=== PATIENT | female | born 1975 ===

== ENCOUNTER → 2022-06-26 08:18 | Outpatient (BNVA) | payer BC, SELFPAY | PROVIDERS: PCP Internal Medicine; Visit Provider Student in an Organized Health Care Education/Training Program | DX: Z13.89 Encounter for screening for other disorder (principal) ==

== ENCOUNTER → 2022-10-01 14:56 | Outpatient (BNVA) | payer BC, SELFPAY | PROVIDERS: PCP Internal Medicine; Visit Provider Nurse Practitioner Family | DX: Z13.89 Encounter for screening for other disorder (principal) ==

== ENCOUNTER → 2022-12-11 13:04 | Outpatient (BNVA) | payer BC, SELFPAY | PROVIDERS: PCP Internal Medicine; Visit Provider Nurse Practitioner Family ==

== ENCOUNTER 2024-03-10 13:58 | Outpatient (AMB) | payer BC, SELFPAY ==
--- NOTE | 2024-03-10 14:09 | A.OFFVIS_ITS ---
Vital Signs 03/10/24 14:12 Height 5 ft 4 in Weight 156 lb BMI 26.8 BP 120/78 Blood Pressure Location Rt brachial Position Sitting Intake Visit Reasons: 3 mo f/u for Migraines Intake Note: Patient presents for 3 month follow up migraines. patient's migraines are much better nurtec seems to be working Allergies No Known Allergies Allergy (Verified 03/10/24 14:13) Medication List - Last Reconciled 03/10/24 by MULU Spence [id number] 250-250-65 mg (Excedrin Migraine) 1 tab PO Q4-6H PRN ibuprofen 800 mg PO Q8H PRN levothyroxine 50 mcg PO DAILY propranolol 10 mg PO BID 30 days riboflavin (vitamin B2) 400 mg PO DAILY 30 days rimegepant (Nurtec ODT) 75 mg orally daily PRN; 30 days triamcinolone acetonide 0.1% 1 appl topical DAILY PRN HPI Comments Details: 48-yr-old female presents for f/u visit. Pt reports she is having less frequent migraines as she is not have her menstrual cycle as regularly. Nurtec is effective for migarine tx. Headache characteristics: Prodrome symptoms: Sleepiness Aura: None Headache: Severe palpitation to pounding frontal, but also can be in top of head, or in the back of the head. Associated symptoms: Photophobia, phonophobia, osmophobia, dizziness (did not have this before 3 months ago), brain fog, word recall, tiredness, facial redness/warmth but hands/feet are cold. Postdrome: tiredness and residual head pain She had seen rheumatology last year for loss of eyebrows, however they did not feel this was an auto-immune process and suggested pt see dermatology. She is having right shoulder pain, which prevents her from sleeping well. She did PT for this but it did not help. She has been trying to do the home PT exercises, including light weights, but not if she is in pain. 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 Recent MRI showed right shoulder tear. She has been referred to Dr Collier at [facility] ortho. She is also having RLE pain- right hip, knee, and ankle pain which is different then the shoulder pain. The right hip and knee pain is more aching- similar but more intense than her fibromyalgia pain. Movement is helpful. She can have BLE leg cramps. She is taking Magnesium qhs. Has constant low back, non-radiating pain. Has BLE R > L swelling. Denies LE numbness, tingling, lumbar shooting pain, discoloration. She uses Ibuprofen prn. Her PCP just prescribed her Meloxicam- she tried it once but did not sleep better. 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 Physical Exam Vital Signs: Last Vital Signs BP 120/78 03/10/24 14:12 BMI result Body Mass Index 26.8 Const General: cooperative and no acute distress Orientation/consciousness: patient oriented x3 Resp Effort & Inspection: normal respiratory effort and able to speak in complete sentences Neuro General: patient oriented x3 Cranial nerves: Yes CN's II-XII intact bilaterally Cognition (Neuro): normal cognition Gait exam (Neuro): Normal gait present Motor exam (neuro): 5/5 motor strength present throughout Deep tendon reflexes (DTR's): Right patellar reflex intensity grade: 2+, Left patellar reflex intensity grade: 2+, Right ankle reflex intensity grade: 2+ and Left ankle reflex intensity grade: 2+ Psych Appearance: grossly normal Mental Status: mental status grossly normal Speech and movement: Normal speech and movement present Affect: normal affect Attitude: cooperative Assessment & Plan Assessment & Plan (1) Migraines: Code(s): G43.909 - Migraine, unspecified, not intractable, without status migrainosus Category: Medical Qualifiers: Migraine type: menstrual (2) Pain of right lower extremity: Code(s): M79.604 - Pain in right leg Category: Medical Plan For overall headache management: Continue optimizing good self-care, including but not limited to maintaining a healthy diet, adequate fluid intake, adequate sleep, and engaging in regular physical activity. Monitor dizziness. For acute headache treatment: Continue Rimegepant ODT 75mg qd prn, may adjunct w/ OTC Tylenol.. Previous acute migraine medication trials: Excedrin- helps but makes jittery. Sumatriptan- helped the pain but made her dizzy (so has to stay home). Naratriptan- chest discomfort and SOB. Acute migraine medication contraindications: None at this time. For headache prevention medication: Continue Riboflavin 400mg qam Continue Mag gluconate or citrate 200-400mg qhs Try taking Propranolol 10mg bid- also uses for anxiety. Previous migraine prevention medication trials: None. Migraine prevention medication contraindications: None at this time. For RLE pain: Trial Meloxicam qd as ordered by PCP- may take several days to see full effect. Hold Ibuprofen when taking. May use Tyelnol 650-1000mg q 4-6 hrs prn. Check RLE EMG/NCS. Pt has previously had comprehensive lab work-up in the past- will review need for additional testing upon review of EMG results. Ortho consult for right shoulder pain. Will follow-up upon review of above and patient to follow-up in clinic in 6 months or sooner prn. Orders: Orders NE nerve conduction velocity Today G43.909 - Migraine, unspecified, not intractable, without status migrainosus, M79.604 - Pain in right leg NE electromyogram (EMG) Today G43.909 - Migraine, unspecified, not intractable, without status migrainosus, M79.604 - Pain in right leg Coding Level of Care Code Est Pt Level 4 (39380) Diagnoses Migraines G43.909 Migraine type: menstrual Pain of right lower extremity M79.604
[2024-03-10 14:12] VITALS: BP 120/78; BMI 26.8
== END 2024-03-10 14:56 | disposition home or self-care (01) ==
PROVIDERS: PCP Internal Medicine; Visit Provider Nurse Practitioner Family
DX: G43.909 Migraine, unspecified, not intractable, without status migrainosus (principal); M79.604 Pain in right leg
CPT/HCPCS: 99214

== ENCOUNTER → 2024-03-10 13:58 | Outpatient (BNVA) | payer BC, SELFPAY | PROVIDERS: PCP Internal Medicine; Visit Provider Nurse Practitioner Family ==

== ENCOUNTER 2024-04-13 15:34 | Outpatient (REF) | payer BC, SELFPAY ==
--- NOTE | 2024-04-13 15:45 | EMG_ITS ---
Chief complaint: Chronic lower back pain, nonradicular. In the last year, started having on and off pain on right hip/knee/ankle, especially when waking up in the morning. Denies any numbness. Reason for referral: Evaluate for lumbar radiculopathy versus neuropathy Referred by: Mercedes Ball NP Procedure done: Right lower extremity NCS/EMG Precautions and/or limitations: None The limb temperature was monitored continuously and remained between 32-36 degrees C during the performance of the NCS. Nerve Conduction Studies Anti Sensory Summary Table ?Stim Site NR Onset (ms) Norm Onset (ms) Peak (ms) Norm Peak (ms) O-P Amp (?V) Norm O-P Amp Site1 Site2 Delta-0 (ms) Dist (cm) Lavelle (m/s) Norm Lavelle (m/s) Right Sural Anti Sensory (Lat Mall) Calf ? 2.6 3.1 <4.0 13.3 >5.0 Calf Lat Mall 2.6 14.0 54 Motor Summary Table ?Stim Site NR Onset (ms) Norm Onset (ms) O-P Amp (mV) Norm O-P Amp iAmp (mV) Amp (1st) (%) Site1 Site2 Delta-0 (ms) Dist (cm) Lavelle (m/s) Norm Lavelle (m/s) Right Peroneal Motor (Ext Dig Brev) Ankle ? 3.1 <4.0 8.3 >2.5 9.8 100.0 Ankle Ext Dig Brev 3.1 0.0 B Fib ? 9.0 8.0 9.5 96.4 B Fib Ankle 5.9 31.5 53 >40 Poplt ? 9.6 7.6 9.1 91.6 Poplt B Fib 0.6 4.0 67 >40 Right Tibial Motor (Abd Fuentes Brev) Ankle ? 3.1 <5 12.8 >2.5 19.2 100.0 Ankle Abd Fuentes Brev 3.1 0.0 Knee ? 10.5 10.3 16.5 80.5 Knee Ankle 7.4 41.0 55 >40 EMG ?Side Muscle Nerve Root Ins Act Fibs Psw Amp Dur Poly Recrt Int Pat Comment Right AbdHallucis MedPlantar S1-2 Incr 1+ 1+ Nml Nml 0 Nml Complete Right AntTibialis Dp Br Peron L4-5 Nml Nml Nml Nml Nml 0 Nml Complete Right PostTibialis Tibial L5, S1 Nml Nml Nml Nml Nml 0 Nml Complete Right MedGastroc Tibial S1-2 Nml Nml Nml Nml Nml 0 Nml Complete Right VastusMed Femoral L2-4 Nml Nml Nml Nml Nml 0 Nml Complete Paraspinal EMG ?Side Muscle Nerve Root Ins Act Fibs Psw Comment Right Lumbar Upper Rami Nml Nml Nml Right Lumbar Mid Rami Nml Nml Nml Right Lumbar Lower Rami Nml Nml Nml FINDINGS: All motor and sensory nerves tested showed normal latencies, amplitudes and conduction velocities. Concentric needle EMG was performed in selected muscles of the right lower extremity and lumbar paraspinals. Study revealed signs of electric abnormalities as shown in the table above. Right AH showed increased insertional activity, PSWs and fibrillations. No denervation seen on lumbar paraspinals. IMPRESSION: 1. There is no electrodiagnostic evidence for peroneal neuropathy, tibial neuropathy. lumbosacral plexopathy, or peripheral neuropathy. 2. Cannot completely rule out a right S1 radiculopathy. CLINICAL COMMENT: Further clinical correlation recommended. Thank you for your kind referral. Sanjuana Hollins MD, HEIDE Board Certified, [place] Board of Physical Medicine and Rehabilitation (ABPMR) Board Certified, [place] Board of Electrodiagnostic Medicine (ABEM) CODIN [id number] [facility]
== END 2024-04-13 15:35 | disposition home or self-care (01) ==
LOC: HO.NEURO 15:34
PROVIDERS: PCP Internal Medicine; Visit Provider Nurse Practitioner Family
DX: M79.604 Pain in right leg (principal); G43.909 Migraine, unspecified, not intractable, without status migrainosus
CPT/HCPCS: 95886; 95908

== ENCOUNTER → 2024-04-13 15:45 | Outpatient (BNV) | payer BC, SELFPAY | PROVIDERS: PCP Internal Medicine; Visit Provider Physical Medicine & Rehabilitation | DX: M79.604 Pain in right leg (principal); M54.59 Other low back pain | CPT/HCPCS: 95886; 95908 ==

== ENCOUNTER 2024-09-20 15:48 | Outpatient (AMB) | payer BC, SELFPAY ==
--- NOTE | 2024-09-20 15:27 | A.OFFVIS_ITS ---
Intake Visit Reasons: Follow Up Pediatric Assistant Required: No Accompanied by: Self / Same As Patient Allergies No Known Allergies Allergy (Verified 09/20/24 15:28) Medication List - Last Reconciled 09/20/24 by MULU Spence [id number] 250-250-65 mg (Excedrin Migraine) 1 tab PO Q4-6H PRN ibuprofen 800 mg PO Q8H PRN levothyroxine 50 mcg PO DAILY propranolol 10 mg PO BID 30 days riboflavin (vitamin B2) 400 mg PO DAILY 30 days rimegepant (Nurtec ODT) 75 mg orally daily PRN; 30 days triamcinolone acetonide 0.1% 1 appl topical DAILY PRN HPI Comments Details: 49-yr-old female presents for f/u televeideo visit of migraine and RLE pain. She states she has not having as many migraine attacks, now only when she has her menstrual cycle, which is occurring irregularly- last was 3 months ago. However when she has the migraine, it is very severe and she cannot work. She stopped her riboflavin about 3 months ago-wonders if she should resume it. She states she says something on social media, stating that magnesium glistening may increase risk for cancer- discussed that there is no clear evidence for this. In fact, low magnesium levels have been associated with higher cancer risk. Though did discuss that in the [place] health supplements are not regulated by the FDA and thus we can not know for sure exactly what is in them. She can try to use more reputable supplement manufacturers. RLE EMG/NCS: Cannot completely rule out a right S1 radiculopathy. Her lwoer back pain is always bothersome, especially if she is standing up for even an hour. she will need to stretch and do pilates type exercises at home- helps some.. The RLE pain, comes and goes, now more in the knees and ankles. States in the morning sometimes, she is just limping, until her body adjusts to the day. She wonders if this is her fibromyalgia. She has done PT in the past for her upper body but never for her low back or right lower leg. She is curious about trying acupuncture, she previously did this for other symptoms in the past which was helpful. 03/10/24, previous HPI: Pt reports she is having less frequent migraines as she is not have her menstrual cycle as regularly. Nurtec is effective for elbert tx. Headache characteristics: Prodrome symptoms: Sleepiness Aura: None Headache: Severe palpitation to pounding frontal, but also can be in top of head , or in the back of the head. Associated symptoms: Photophobia, phonophobia, osmophobia, dizziness (did not have this before 3 months ago), brain fog, word recall, tiredness, facial redness/warmth but hands/feet are cold. Postdrome: tiredness and residual head pain She had seen rheumatology last year for loss of eyebrows, however they did not feel this was an auto-immune process and suggested pt see dermatology. She is having right shoulder pain, which prevents her from sleeping well. She did PT for this but it did not help. She has been trying to do the home PT exercises, including light weights, but not if she is in pain. 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 Recent MRI showed right shoulder tear. She has been referred to Dr Collier at [facility] ortho. She is also having RLE pain- right hip, knee, and ankle pain which is different then the shoulder pain. The right hip and knee pain is more aching- similar but more intense than her fibromyalgia pain. Movement is helpful. She can have BLE leg cramps. She is taking Magnesium qhs. Has constant low back, non-radiating pain. Has BLE R > L swelling. Denies LE numbness, tingling, lumbar shooting pain, discoloration. She uses Ibuprofen prn. Her PCP just prescribed her Meloxicam- she tried it once but did not sleep better. 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 Physical Exam Const General: cooperative and no acute distress Orientation/consciousness: patient oriented x3 Resp Effort & Inspection: normal respiratory effort and able to speak in complete se ntences Neuro General: patient oriented x3 Cognition (Neuro): normal cognition Psych Appearance: grossly normal Mental Status: mental status grossly normal Speech and movement: Normal speech and movement present Affect: normal affect Attitude: cooperative Telehealth Telehealth Telehealth Platform: [employer] Location of provider rendering services: practice address Location of patient: address on file Patient Identification confirmed using: Name, : Yes Telehealth method: video Patient verbally consented to treatment: Yes Patient verbally consented to billing insurance company: Yes Patient informed of any privacy concerns related to visit: Yes Minutes spent on Phone/Video with Pt.: 24 Assessment & Plan Assessment & Plan (1) Low back pain, unspecified: Code(s): M54.50 - Low back pain, unspecified Category: Medical (2) Pain of right lower extremity: Code(s): M79.604 - Pain in right leg Category: Medical (3) Migraines: Code(s): G43.909 - Migraine, unspecified, not intractable, without status migrainosus Category: Medical Qualifiers: Intractability: not intractable Migraine type: menstrual Status migrainosus presence: without status migrainosus Qualified Code(s): G43.829 - Menstrual migraine, not intractable, without status migrainosus Plan For overall headache management: Continue optimizing good self-care, including but not limited to maintaining a healthy diet, adequate fluid intake, adequate sleep, and engaging in regular physical activity. Monitor dizziness. For menstrual migraine: Advised to try taking Nurtec at the very 1st sign of the menstrual migraine attack, and again may adjunct with Tylenol, ibuprofen, or Excedrin. May try taking edemame 1 cup daily starting at onset of menstrual migraine and continuing x's 1 week. For acute headache treatment: Continue propranolol 10 mg p.o. twice a day for anxiety and/or migraine attack. Continue Rimegepant ODT 75mg qd prn, may adjunct w/ OTC Tylenol.. Previous acute migraine medication trials: Excedrin- helps but makes jittery. Sumatriptan- helped the pain but made her dizzy (so has to stay home). Naratriptan- chest discomfort and SOB. Acute migraine medication contraindications: None at this time. For headache prevention medication: Resume Riboflavin 400mg qam Continue Mag gluconate or citrate 200-400mg qhs Previous migraine prevention medication trials: None. Migraine prevention medication contraindications: None at this time. For RLE pain: Reviewed RLE EMG/NCS- no evidence of systemic neuropathy, and study could not rule out a S1 radiculopathy. Patient advised to try a course of PT which she can complement with acupuncture therapy. Will follow-up upon review of above and patient to follow-up in clinic in 6 months or sooner prn. Orders: Orders PT Evaluation and Treatment Today M54.50 - Low back pain, unspecified, M79.604 - Pain in right leg Referrals Acupuncture Referral M54.50 - Low back pain, unspecified, M79.604 - Pain in right leg Medications: Changed From propranolol 10 mg PO BID 30 days 60 tabs 0RF To propranolol 10 mg PO BID PRN 60 tabs 3RF anxiety, migraine 30 days Refilled rimegepant (Nurtec ODT) 75 mg orally daily PRN; 16 tabs 6RF migraine headache 30 days G43.909 - Migraine, unspecified, not intractable, without status migrainosus riboflavin (vitamin B2) 400 mg PO DAILY 30 tabs 6RF 30 days Coding Level of Care Code Tele Est Pt Level 4 (62509) Diagnoses Low back pain, unspecified M54.50 Pain of right lower extremity M79.604 Menstrual migraine without status migrainosus, not intractable G43.829 Intractability: not intractable Migraine type: menstrual Status migrainosus presence: without status migrainosus
== END 2024-09-21 12:39 | disposition home or self-care (01) ==
LOC: HO.HSMS 15:49
PROVIDERS: PCP Internal Medicine; Visit Provider Nurse Practitioner Family
DX: M54.50 Low back pain, unspecified (principal); M79.604 Pain in right leg; G43.829 Menstrual migraine, not intractable, without status migrainosus
CPT/HCPCS: 99214

== ENCOUNTER → 2024-09-20 15:48 | Outpatient (BNVA) | payer BC, SELFPAY | PROVIDERS: PCP Internal Medicine; Visit Provider Nurse Practitioner Family ==

== ENCOUNTER 2025-01-26 14:54 | Emergency (ER) | payer BC, SELFPAY ==
--- NOTE | ~2025-01-26 | XR_ITS ---
EXAMINATION: XR CHEST CLINICAL INFORMATION: pain COMPARISON: None available. TECHNIQUE: 2 views of the chest were obtained. FINDINGS: Lungs: Mild haziness in the left lung the base. Right lung is clear. Pleura: No pleural effusion or pneumothorax. Heart/Mediastinum: Cardiomediastinal silhouette is within normal limits. Bones: No acute findings. XR/XR chest 2V IMPRESSION: Minor subsegmental atelectasis in the left lung base. Electronically signed by: Clarence Sharp MD 01/26/2025 03:54 PM EDT
--- NOTE | 2025-01-26 14:56 | ECG_ITS ---
Test Reason : chest pain Blood Pressure : */* mmHG Vent. Rate : 64 BPM Atrial Rate : 64 BPM P-R Int : 150 ms QRS Dur : 112 ms QT Int : 436 ms P-R-T Axes : 18 79 38 degrees QTcB Int : 449 ms Normal sinus rhythm Low voltage QRS Right bundle branch block Abnormal ECG No previous ECGs available Referred By: Generic ED Physician Electronically Signed By: REGLA WATERMAN MD
[2025-01-26 15:09] VITALS: BP 164/76; PULSE 76; RESP 16; TEMP 36.6; O2SAT 99; BMI 28.2
--- NOTE | 2025-01-26 15:10 | ED_ITS ---
HPI - General Adult General Chief complaint: Chest Pain Stated complaint: Chest Pain Time Seen by Provider: 01/26/25 17:05 Source: patient Mode of arrival: ambulatory Limitations: no limitations History of Present Illness ED Provider: HPI narrative: This is a 49-year-old woman, not on control pills, no recent travel, no recent surgeries, no history of blood clots, otherwise healthy, takes propranolol for anxiety, has seen her PCP knows she has right bundle-branch block, has echo coming up soon, developed 3 episodes of sharp chest pain today around noon when she was driving, it is quick on quick off, no pleurisy, she felt short of breath during the pain episodes but it very quickly abated. No fevers or chills no hemoptysis reported. Related Data Home Medications ?Medication ?Instructions ?Recorded ?Confirmed [id number] 250 1 tab PO Q4-6H PRN 05/11/22 09/20/24 mg-250 mg-65 mg tablet (Excedrin Migraine) ibuprofen 800 mg tablet 800 mg PO Q8H PRN 05/11/22 0 09/20/24 levothyroxine 50 mcg capsule 50 mcg PO DAILY 05/11/22 09/20/24 triamcinolone acetonide 0.1 % 1 appl topical DAILY PRN 12/11/22 09/20/24 topical cream Previous Rx's ?Medication ?Instructions ?Recorded propranolol 10 mg tablet 10 mg PO BID PRN anxiety, mi graine 09/20/24 30 days #60 tabs riboflavin (vitamin B2) 400 mg 400 mg PO DAILY 30 days #30 tabs 09/20/24 tablet rimegepant 75 mg disintegrating 75 mg PO .COMPLEX PRN migraine 11/03/24 tablet (Nurtec ODT) headache 30 days #16 tabs Allergies Allergy/AdvReac Type Severity Reaction Status Date / Time No Known Allergies Allergy Verified 01/26/25 15:10 Review of Systems 2 Constitutional: Constitutional: Reports as per [facility] Past Medical History Medical History Sicca syndrome Hypothyroidism Fibromyalgia Migraines Surgical History History of 2 sections H/O adenoidectomy Family History Family History Mother Hearing loss Diabetes Father Pulmonary emphysema Hypertension Social History Social History Household Members: Spouse and Children Alcohol intake: current Alcohol intake frequency: holidays/special occasions only Alcohol type: wine Patient Tobacco Use Status: Former Tobacco user Smoked in Last 30 Days: No Use of substances other than those prescribed or required for medical reasons: No Advance Directives: No Advance Directives Information Provided: No Current occupational status: employed 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 Physical Exam ED Vital Signs: Vital Signs - 24 hr 01/26/25 15:09 01/26/25 17:12 Temperature 97.8 F Pulse Rate 76 68 Respiratory Rate 16 15 Blood Pressure 164/76 H Pulse Oximetry 99 100 Oxygen Delivery Method Room Air Room Air BMI result Body Mass Index 28.2 Const Other: * Gen: ?Overall well-appearing patient * HEENT: PERRLA, EOMI, MMM, * Neck: Supple, no LAD * CV: RRR, no obvious murmurs appreciated, some midsternal tenderness and left- sided ribcage tenderness * Resp: ?No wheezing rales rhonchi no stridor moving air well * Abd: ?Bowel sounds are present, no tenderness no rebound no rigidity * MSK: FROM, strength 5/5 all extremities, no lower extremity edema * Skin: Warm, dry, intact, * Neuro: ?Alert and oriented x3, moving upper and lower extremities symmetrically, no obvious facial asymmetry noted Course Course Course Narrative: RME, this is a rapid medical exam performed by Daniel Ch please refer to primary provider for complete H&P- 49 year old female presents for evaluation of chest pain. Symptoms started earlier and last 5 seconds but returned, so prompted her visit. Plan for cardiac workup. EKG was performed on arrival Medical Decision Making Medical Decision Making MDM Narrative: Evaluated with chest pain no cardiac risk factors, did have cardiac workup including EKG, cardiac enzymes the rest of the blood work has been reassuring chest x-ray without pneumonia, pneumothorax, I have discussed with the patient whether I would work her up for PE but she has been hypoxic tachycardic in the no PE risk factors, I would not be able to PERC her out due to her age however, did not feel further imaging or D-dimer test is indicated such as CT angio Provided patient with information regarding right bundle-branch block morphology, she has a PCP involved in her care and has an echo coming up Differential Diagnosis Differential Diagnoses: The differential diagnosis associated with the presentation includes (ACS, pneumothorax, aortic dissection, PE, Boerhaave syndrome) Admission/Observation Consideration of admission/observation: Escalation of care including admission/observation considered (Patient otherwise not hypoxic tachycardic, no EKG changes, cardiac workup unremarkable we discharged) 2022 Emergency Medicine Coding Guide from [employer] on 01/26/2025 All calculations should be rechecked by clinician prior to use RESULT SUMMARY: 5 Estimated Level of Service Problems: Moderate (4) Risk: High (5) Data: Extensive (5) NARRATIVE MDM: This patient's problem complexity is Moderate as patient: has a new undiagnosed problem with uncertain prognosis but that could be serious. This patient's risk is High due to: overall presentation requiring evaluation for a potentially High-risk process. This patient's data complexity is Extensive due to: -multiple tests ordered/reviewed -independent interpretation of imaging or EKG INPUTS: Number and Complexity ?> 5 = 4: undiagnosed new problem, uncertain outcome (e) Risk level ?> 4 = High Tests ordered ?> 3 = =3 Tests results reviewed (excluding labs) ?> 2 = 2 Prior external notes reviewed ?> 0 = 0 Assessment requiring and independent historian ?> 0 = No Independent interpretation of tests ?> 1 = Yes Discussed management/test interpretation w/external professional ?> 0 = No Lab Data [facility] Lab Attestation statement: I reviewed the patient's lab results. 01/26/25 15:27 01/26/25 15:27 Labs: Lab Results 01/26/25 Range/Units 15:27 WBC 6.9 (4.8-10.8) X10*3/uL RBC 4.06 L (4.20-5.50) X10*6/uL Hgb 12.5 (12.0-16.0) g/dl Hct 36.0 L (37.0-47.0) % MCV 88.7 (80.0-98.0) fL MCH 30.8 (27.0-33.0) pg MCHC 34.7 (31.0-35.0) g/dl RDW 13.1 (11.0-16.0) % Plt Count 251 (160-400) X10*3/uL MPV 10.2 (9.4-12.3) fL Immature Gran % (Auto) 0.1 (0.0-0.4) % Neut % (Auto) 43.7 L (45-73) % Lymph % (Auto) 47.5 H (20-40) % [place] % (Auto) 5.8 (2-11) % Eos % (Auto) 2.5 (0-4) % Baso % (Auto) 0.4 (0-2) % Lymph # (Auto) 3.3 (1.2-4.9) X10*3/uL [place] # (Auto) 0.4 (0.1-1.2) X10*3/uL Eos # (Auto) 0.2 (0.0-0.4) X10*3/uL Baso # (Auto) 0.0 (0.0-0.2) X10*3/uL Abs Immat Gran (auto) 0.01 (0.00-0.03) X10*3/uL Absolute Neuts (auto) 3.0 (2.0-8.3) x10*3/uL Absolute Nucleated RBC 0.000 (0.0-0.012) X10*3/uL Nucleated RBC % (auto) 0.0 (0.0-0.2) /100WBC Sodium 139 (135-145) mmol/L Potassium 4.2 (3.3-5.1) mmol/L Chloride 108 (96-108) mmol/L Carbon Dioxide 24 (22-29) mmol/L Anion Gap 11 L (12-20) BUN 17 H (9-16) mg/dL Creatinine 0.74 (0.5-1.4) mg/dL Estim Creat Clear Calc 95.5 Estimated GFR > 60 Random Glucose 92 (60-115) mg/dL Calcium 9.1 (8.4-10.2) mg/dL Total Bilirubin 0.8 (0.0-1.0) mg/dL AST 22 (5-31) U/L ALT 18 (0-31) U/L Alkaline Phosphatase 72 (39-117) U/L Troponin I High Sens < 2.7 (<3.5-17.0) ng/L B-Natriuretic Peptide < 10 (<100) pg/mL Total Protein 6.9 (6.5-8.0) g/dL Albumin 4.5 (3.5-5.0) g/dL Lipase 30 (8-78) U/L Independent Interpretation I performed an independent interpretation of an: EKG (Sixty-four beats per minute, right bundle-branch block morphology no ST-T changes no dysrhythmia) and Plain X-Ray (Otherwise normal ECG without dysrhythmia, AV nereyda blocks or ST-T changes to suspect underlying ACS, my independent interpretation) Tests considered The following testing was considered but not selected: D-dimer, CT angio Prescription Management I considered prescription management with: Pain Medication Discharge Plan Discharge Clinical Impression: Chest pain, precordial, Right bundle branch block Patient Disposition: Home, Self-Care Instructions: Chest Pain (ED) Additional Instructions: Diagnosis and Initial Evaluation: You have been evaluated in the Emergency Department (ED) for chest pain. Based on your clinical assessment, electrocardiogram (ECG), and high-sensitivity cardiac troponin (hs-cTn) levels, you have been classified as low-risk for acute coronary syndrome (ACS) and myocardial infarction (CA). This means that your likelihood of having a heart attack or other serious heart condition in the next 30 days is very low. We have discussed right bundle-branch block you were provided education information. I suspect your pain was musculoskeletal however see my general discharge information as below Follow-Up Care: ? Primary Care Provider (PCP) or Saw Boss: It is important to follow up with your primary care provider or microcomputer technician within the next 14 to 30 days. This follow-up is crucial to ensure that any underlying conditions are managed appropriately and to discuss any further testing that may be needed. ? Notification: If you have an established PCP or microcomputer technician, they have been notified of your ED visit to facilitate continuity of care. Self-Care and Monitoring: ? Medications: Continue taking any prescribed medications as directed. If you have been given new medications, ensure you understand how and when to take them. ? Activity: Resume normal activities as tolerated. Avoid strenuous activities until you have discussed them with your healthcare provider. ? Diet: Maintain a heart-healthy diet, low in saturated fats, cholesterol, and sodium. Red Flags: Seek immediate medical attention if you experience any of the following: ? New or worsening chest pain ? Shortness of breath ? Dizziness or fainting ? Pain radiating to your arm, neck, or jaw ? Sweating, nausea, or vomiting Additional Testing: In some cases, outpatient testing such as a stress test or imaging may be recommended to further evaluate your heart health. Your follow-up provider will discuss this with you if necessary. Mental Health: Anxiety and stress can contribute to chest pain. Consider discussing any concerns with your healthcare provider, who may recommend screening for anxiety or depression and appropriate management strategies. Contact Information: If you have any questions or concerns before your follow-up appointment, please contact your healthcare provider or the ED where you were evaluated. Summary: You have been discharged from the ED with a low risk of serious heart conditions. Follow the instructions above, attend your follow-up appointments, and seek immediate care if you experience any red flags. Prescriptions: No Action Nurtec ODT 75 mg tablet,disintegrating 75 mg PO .COMPLEX PRN (Reason: migraine headache) 30 Days Qty: 16 6RF Rx Instructions: 75 mg orally daily PRN; PA APPROVED 11/01/24-10/31/25 Excedrin Migraine 250-250-65 mg tablet 1 tab PO Q4-6H PRN ibuprofen 800 mg tablet 800 mg PO Q8H PRN levothyroxine 50 mcg capsule 50 mcg PO DAILY triamcinolone acetonide 0.1 % cream 1 appl topical DAILY PRN riboflavin (vitamin B2) 400 mg tablet 400 mg PO DAILY 30 Days Qty: 30 6RF propranolol 10 mg tablet 10 mg PO BID PRN (Reason: anxiety, migraine) 30 Days Qty: 60 3RF Referrals: Amaris Rodriguez MD [Primary Care Provider, Internal Medicine] - 2 weeks Clinical Impression: Right bundle branch block; Chest pain, precordial Print Language: Indonesian
[2025-01-26 15:31] LABS: MANUAL DIFF FLAG NO
[2025-01-26 15:33] LABS: Hematocrit 36.0 % (37.0-47.0); Hemoglobin 12.5 g/dl (12.0-16.0); Imm Gran Abs Auto 0.01 X10*3/uL (0.00-0.03); Imm Gran Pct Auto 0.1 % (0.0-0.4); Lymphocytes Absolute Auto 3.3 X10*3/uL (1.2-4.9); Mean Corpuscular HGB Conc 34.7 g/dl (31.0-35.0); Mean Corpuscular Hemoglobin 30.8 pg (27.0-33.0); Mean Corpuscular Volume 88.7 fL (80.0-98.0); NRBC Abs Auto 0.000 X10*3/uL (0.0-0.012); NRBC Pct Auto 0.0 /100WBC (0.0-0.2); Platelet Count 251 X10*3/uL (160-400); Red Blood Count 4.06 X10*6/uL (4.20-5.50); White Blood Count 6.9 X10*3/uL (4.8-10.8)
[2025-01-26 15:47] LABS: Alanine Aminotransferase 18 U/L (0-31); Albumin Level 4.5 g/dL (3.5-5.0); Alkaline Phosphatase 72 U/L (39-117); Anion Gap 11 (12-20); Aspartate Amino Transferase 22 U/L (5-31); Blood Urea Nitrogen 17 mg/dL (9-16); Calcium 9.1 mg/dL (8.4-10.2); Carbon Dioxide 24 mmol/L (22-29); Chloride 108 mmol/L (96-108); Creatinine Clr Calc Pharmacy 95.5; Estimated Glomerular Filt Rate > 60; Lipase 30 U/L (8-78); Potassium 4.2 mmol/L (3.3-5.1); Sodium 139 mmol/L (135-145); Total Protein 6.9 g/dL (6.5-8.0)
[2025-01-26 15:56] LABS: Troponin-I High Sensitivity < 2.7 ng/L (<3.5-17.0)
[2025-01-26 16:11] LABS: B Type Natriuretic Peptide < 10 pg/mL (<100)
--- NOTE | 2025-01-26 17:08 | PC.NURSE ---
Pt to ED 16 from triage, reports intermittent sharp chest pain /. Had plans for echo to be done, developed increasing pain and was told by PCP to come to ED. Placed on bedside monitor. A/O x 3, reports dizziness and SOB. Maintains O2 >90% on room air, resp even/unlabored.
[2025-01-26 17:12] VITALS: PULSE 68; RESP 15; O2SAT 100
[2025-01-26 17:48] VITALS: BP 125/92; PULSE 59; RESP 16; TEMP 36.5; O2SAT 98
== END 2025-01-26 18:01 | disposition home or self-care (01) ==
PROVIDERS: Physician Assistant; Emergency Provider Emergency Medicine; PCP Internal Medicine
DX: R07.89 Other chest pain (principal); R06.02 Shortness of breath; F41.1 Generalized anxiety disorder; F43.0 Acute stress reaction; I45.10 Unspecified right bundle-branch block; Z79.899 Other long term (current) drug therapy; Z87.891 Personal history of nicotine dependence
CPT/HCPCS: 36415; 71046; 80053; 83690; 83880; 84484; 85025; 93005; 99283; 99285

== ENCOUNTER → 2025-01-26 14:56 | Outpatient (BNV) | payer BC, SELFPAY | PROVIDERS: Emergency Provider Emergency Medicine; PCP Internal Medicine; Visit Provider Internal Medicine Cardiovascular Disease | DX: I45.10 Unspecified right bundle-branch block (principal) | CPT/HCPCS: 93010 ==

== ENCOUNTER → 2025-01-26 15:12 | Outpatient (BNV) | payer BC, SELFPAY | PROVIDERS: PCP Internal Medicine; Visit Provider Radiology Body Imaging | DX: R07.9 Chest pain, unspecified (principal) | CPT/HCPCS: 71046 ==

== ENCOUNTER 2025-04-21 10:11 | Outpatient (REF) | payer BC, SELFPAY ==
[2025-04-21 10:29] LABS: MANUAL DIFF FLAG NO
[2025-04-21 11:25] LABS: Hematocrit 38.6 % (37.0-47.0); Hemoglobin 13.0 g/dl (12.0-16.0); Imm Gran Abs Auto 0.01 X10*3/uL (0.00-0.03); Imm Gran Pct Auto 0.2 % (0.0-0.4); Lymphocytes Absolute Auto 2.4 X10*3/uL (1.2-4.9); Mean Corpuscular HGB Conc 33.7 g/dl (31.0-35.0); Mean Corpuscular Hemoglobin 29.7 pg (27.0-33.0); Mean Corpuscular Volume 88.3 fL (80.0-98.0); NRBC Abs Auto 0.000 X10*3/uL (0.0-0.012); NRBC Pct Auto 0.0 /100WBC (0.0-0.2); Platelet Count 251 X10*3/uL (160-400); Red Blood Count 4.37 X10*6/uL (4.20-5.50); White Blood Count 6.0 X10*3/uL (4.8-10.8)
[2025-04-21 11:54] LABS: Alanine Aminotransferase 18 U/L (0-31); Albumin Level 4.5 g/dL (3.5-5.0); Alkaline Phosphatase 80 U/L (39-117); Anion Gap 13 (12-20); Aspartate Amino Transferase 21 U/L (5-31); Blood Urea Nitrogen 12 mg/dL (9-16); Calcium 9.4 mg/dL (8.4-10.2); Carbon Dioxide 24 mmol/L (22-29); Chloride 109 mmol/L (96-108); Estimated Glomerular Filt Rate > 60; Iron 99 mcg/dL (30-160); Percent Iron Saturation 33 % (15-50); Potassium 4.0 mmol/L (3.3-5.1); Sodium 142 mmol/L (135-145); Total Iron Binding Capacity 296 mcg/dL (228-428); Total Protein 7.2 g/dL (6.5-8.0); Unsaturated Iron Binding 197 ug/dL
[2025-04-21 12:09] LABS: Ferritin 24 ng/mL (10-250)
[2025-04-21 12:15] LABS: Folate 3.8 ng/mL (> or = 4.0); Vitamin B12 398 pg/mL (200-900)
[2025-04-25 18:03] LABS: Anti Nuclear Antibody Pattern Nuclear, Speckled; Anti Nuclear Antibody Screen POSITIVE (NEGATIVE); Anti Nuclear Antibody Titer 1:40 titer
[2025-04-25 20:59] LABS: Antibody to SS-A Antigen <1.0 NEG AI (<1.0 NEG); Antibody to SS-B Antigen <1.0 NEG AI (<1.0 NEG)
== END 2025-04-21 10:12 | disposition home or self-care (01) ==
LOC: HO.LAB 10:11
PROVIDERS: PCP Internal Medicine; Visit Provider Nurse Practitioner Family
DX: R76.89 Other specified abnormal immunological findings in serum (principal); D64.9 Anemia, unspecified; E51.9 Thiamine deficiency, unspecified
CPT/HCPCS: 36415; 80053; 82607; 82728; 82746; 83090; 83540; 83921; 84207; 84425; 85025; 85652; 86038; 86039; 86140; 86160; 86225; 86235